=== PATIENT | female | born 1970 | race Caucasian/White ===

== ENCOUNTER 2017-03-21 19:06 | Inpatient (IN) | payer OTHER ==
[~2017-03-21] VITALS: Ht 154.9 cm; Wt 83.5 kg
[2017-03-21 21:21] LABS: CARBON DIOXIDE 25.9 mmol/L (21-32); CREATININE SERUM 1.7 mg/dL (0.6-1.0); POTASSIUM SERUM 3.2 mmol/L (3.5-5.1)
[2017-03-21 21:25] LABS: ALBUMIN 3.7 g/dL (3.4-5.0); BILIRUBIN TOTAL 1.29 mg/dL (0.20-1.00)
[2017-03-21 21:26] LABS: BASOPHIL % 0.4 % (0-2); PLATELET COUNT 354 x10^3mcL (130-400); RED CELL DISTRIBUTION WIDTH 13.6 % (11.5-14.5)
[2017-03-21 21:29] LABS: TOTAL PROTEIN, SERUM 10.1 g/dL (6.4-8.2)
--- NOTE | 2017-03-21 21:30 | NUR ---
PATIENT REPORTS TO ED WITH COMPLAINT RT LOWER ABDOMINAL/FLANK PAIN. PATIENT WAS SEEN BY MD. BLOOD WAS DRAWN BY LAB. SALINE LOCK INSERTED . FLUID IS INFUSING.
[2017-03-21] MEDS ORDERED: DILANTIN100 MG PO (21:45)
[2017-03-21] MEDS ORDERED: PROGRAF1 MG PO ×2 (21:46→21:50)
[2017-03-21] MEDS ORDERED: AV-PHOS 250 NE250 MG PO (21:47)
[2017-03-21] MEDS ORDERED: CEL500 PO (21:47)
[2017-03-21] MEDS ORDERED: CLONIDINE HCL0.1 MG PO (21:48)
[2017-03-21 21:50] LABS: microscopic required? YES; urine erythrocyte 1+ (NEGATIVE)
[2017-03-21] MEDS ORDERED: BENADRYL ALLERG25 M1 PO (21:52)
[2017-03-21] MEDS ORDERED: LORAZEPAM1 MG PO (21:52)
[2017-03-21] MEDS ORDERED: APAP500 MG PO (21:54)
--- NOTE | 2017-03-21 22:35 | NUR ---
DR RIVAS GAVE ADMISSION ORDER FOR MED/SURG
--- NOTE | 2017-03-21 22:57 | NUR ---
PATIENT IS ADMITTED WITH PYELONEPHRITIS.REPORT WAS GIVE TO FRANCISCO. PATIENT HAD ACUTE EPOSIDE OF VOMITING. MEDICATED WITH ZOFRAN IVP AND TRANSPORTED TO ROOM 208A.
--- NOTE | 2017-03-21 23:00 | NUR ---
RECEIVED PT FROM ED VIA [facility], CAME IN DUE TO ABDOMINAL PAIN AND VOMITING. AAOX4. NO SOB NOTED. DENIES CHEST PAIN/PRESSURE. C/O 6/10 SHARP RIGHT SIDED ABDOMINAL PAIN. DENIES NAUSEA/VOMITING AT THIS TIME. C/O BROWNISH-YELLOW COLORED URINE. DENIES DYSURIA. IV SITE PATENT AND INTACT. SIDE RAILS UPX2. CALL LIGHT ON REACH. ENDORSED TO PRIMARY NURSE FRANCISCO FOR CONTINUITY OF CARE
--- NOTE | 2017-03-21 23:01 | NUR ---
PATIENT TRANSPORTED TO ROOM.
--- NOTE | 2017-03-21 23:05 | NUR ---
PT RECEIVED FROM RESOURCE NURSE. PT A/O X4. MED-SURG, NO TELE. PULSES PALPABLE, NO EDEMA PRESENT. LUNG SOUNDS CTA, ON RA, DENIES SOB. ABD SOFT AND NONDISTENDED, BOWEL SOUNDS ACTIVE. PT DENIES N/V AT THIS TIME, STATES "THEY GAVE ME MEDICINE DOWN IN ER." VOIDS ADEQUATELY, BROWNISH/YELLOWISH URINE. AMBULATORY. SKIN IS INTACT. ADMITS TO HEADACHE AND RIGHT ABD PAIN AT THIS TIME. PT STATES PAIN IS TOLERABLE AT THIS TIME. IVF INFUSING WELL TO RFA, NS @ 100 ML/HR. ORIENTED PT TO ROOM AND SURROUNDINGS. BED IN LOWEST SETTING, SIDE RAILS UP X2, CALL WITHIN REACH. WILL CONTINUE TO MONITOR.
[2017-03-21 23:13] VITALS: BP 118/84
[2017-03-21 23:16] VITALS: Ht 154.9 cm; Wt 83.5 kg
--- NOTE | 2017-03-22 01:21 | NUR ---
PT ASLEEP AT THIS TIME, BUT EASILY AROUSABLE. NO RESP DISTRESS NOTED, NO SIGNS OF PAIN OBSERVED. IVF INFUSING WELL. CALL LIGHT WITHIN REACH. WILL CONTINUE TO MONITOR.
--- NOTE | 2017-03-22 06:43 | NUR ---
PT ASLEEP AT THIS TIME. NO RESP DISTRESS NOTED, NO S/S OF PAIN OBSERVED. IVF INFUSING WELL. ALL NEEDS MET. CALL LIGHT WITHIN REACH. WILL ENDORSE CARE TO AM NURSE.
[2017-03-22 06:47] LABS: BASOPHIL % 0.6 % (0-2); PLATELET COUNT 290 x10^3mcL (130-400); RED CELL DISTRIBUTION WIDTH 13.5 % (11.5-14.5)
[2017-03-22 06:56] LABS: CALCIUM 8.2 mg/dL (8.5-10.1); CARBON DIOXIDE 23.8 mmol/L (21-32); CREATININE SERUM 1.6 mg/dL (0.6-1.0)
[2017-03-22 07:55] VITALS: BP 111/80
[2017-03-22 09:35] VITALS: BP 89/59
--- NOTE | 2017-03-22 11:44 | NUR ---
CALLED AND GOT ANGEELS BRAVO'S TELEPHONE ORDER AND READ BACK: PHENYTOIN 300MG BID TO MATCH PT'S HOME DOSE. MADE PHARMANCY AWARE ABOUT THIS CHANGE.
[2017-03-22 14:48] VITALS: BP 89/59
== END 2017-03-22 16:20 | disposition home or self-care (01) | DRG 463 ==
LOC: ED 19:06 → MU 22:12
PROVIDERS: Emergency Medicine; Internal Medicine Pulmonary Disease; ADMIT Internal Medicine Pulmonary Disease
DX: N12 Tubulo-interstitial nephritis, not specified as acute or chronic (principal); Z94.0 Kidney transplant status; N18.3 Chronic kidney disease, stage 3 (moderate); I12.9 Hypertensive chronic kidney disease with stage 1 through stage 4 chronic kidney disease, or unspecified chronic kidney disease; Z88.8 Allergy status to other drugs, medicaments and biological substances
CPT/HCPCS: J0696; J1650; J2405; J7030; J7050; J7507; J7517

== ENCOUNTER 2017-04-29 12:00 | Emergency (ER) | payer OTHER ==
[~2017-04-29] VITALS: Ht 154.9 cm; Wt 84.9 kg
[~2017-04-29 12:00] MED LIST: APAP500 MG PO; AV-PHOS 250 NE250 MG PO; BENADRYL ALLERG25 M1 PO; CEL500 PO; CLONIDINE HCL0.1 MG PO; DILANTIN100 MG PO; LORAZEPAM1 MG PO; PROGRAF1 MG PO
[2017-04-29 12:18] VITALS: BP 110/70
== END 2017-04-29 14:20 | disposition home or self-care (01) ==
LOC: ED 12:00
DX: L60.0 Ingrowing nail (principal); I10 Essential (primary) hypertension

== ENCOUNTER 2017-06-12 20:46 | Emergency (ER) | payer OTHER ==
[~2017-06-12] VITALS: Ht 154.9 cm; Wt 84.4 kg
[2017-06-12 21:10] VITALS: Ht 154.9 cm; Wt 84.4 kg
[2017-06-13 01:51] VITALS: BP 127/61
== END 2017-06-13 01:51 | disposition home or self-care (01) ==
LOC: ED 20:46
DX: J20.9 Acute bronchitis, unspecified (principal); I10 Essential (primary) hypertension; Z88.5 Allergy status to narcotic agent; Z88.1 Allergy status to other antibiotic agents
CPT/HCPCS: 87804

== ENCOUNTER 2017-08-13 23:00 | Observation (INO) | payer OTHER ==
[~2017-08-13] VITALS: Ht 154.9 cm; Wt 84.8 kg
[2017-08-13 23:10] VITALS: Ht 154.9 cm; Wt 84.8 kg
[2017-08-14 00:41] LABS: BASOPHIL % 0.6 % (0-2); PLATELET COUNT 277 x10^3mcL (130-400); RED CELL DISTRIBUTION WIDTH 14.6 % (11.5-14.5)
[2017-08-14 00:50] LABS: CALCIUM 7.8 mg/dL (8.5-10.1); CARBON DIOXIDE 24.3 mmol/L (21-32); CREATININE SERUM 2.3 mg/dL (0.6-1.0); POTASSIUM SERUM 4.5 mmol/L (3.5-5.1)
[2017-08-14 00:57] LABS: BILIRUBIN TOTAL 0.3 mg/dL (0.20-1.00); TOTAL PROTEIN, SERUM 8.1 g/dL (6.4-8.2)
[2017-08-14 01:02] LABS: ALBUMIN 3.1 g/dL (3.4-5.0)
[2017-08-14 02:27] VITALS: BP 115/78
[2017-08-14 05:51] VITALS: BP 96/52
[2017-08-14 09:19] LABS: CK-MB < 0.5 ng/mL (0-3.6); CREATINE KINASE 29 U/L (26-192)
[2017-08-14 09:47] VITALS: BP 106/56
[2017-08-14 13:03] VITALS: BP 127/78
[2017-08-14 13:58] VITALS: BP 136/80
[2017-08-14 14:42] VITALS: BP 136/80
[2017-08-14 15:21] LABS: CK-MB < 0.5 ng/mL (0-3.6); CREATINE KINASE 36 U/L (26-192)
== END 2017-08-14 16:07 | disposition home or self-care (01) | DRG 203 ==
LOC: ED 23:00 → DU 08-14 01:19
PROVIDERS: Emergency Medicine; Internal Medicine
DX: R07.89 Other chest pain (principal); Z94.0 Kidney transplant status; I10 Essential (primary) hypertension; G40.909 Epilepsy, unspecified, not intractable, without status epilepticus; E66.9 Obesity, unspecified
CPT/HCPCS: 83880; G0378; J1650; J7507; J7517; Q0092

== ENCOUNTER 2017-12-27 15:00 | Emergency (ER) | payer OTHER ==
[~2017-12-27] VITALS: Ht 152.4 cm; Wt 79.4 kg
[2017-12-27 15:13] VITALS: Ht 152.4 cm; Wt 79.4 kg
[2017-12-27 18:17] VITALS: BP 129/77
== END 2017-12-27 18:19 | disposition home or self-care (01) ==
LOC: ED 15:00
DX: R05 Cough (principal); I10 Essential (primary) hypertension; F41.9 Anxiety disorder, unspecified; Z90.49 Acquired absence of other specified parts of digestive tract; Z90.710 Acquired absence of both cervix and uterus; Z94.0 Kidney transplant status

== ENCOUNTER 2018-02-12 15:55 | Emergency (ER) | payer OTHER ==
[2018-02-12 16:01] VITALS: Ht 152.4 cm
[2018-02-12 18:19] LABS: BASOPHIL % 0.9 % (0-2); PLATELET COUNT 246 x10^3mcL (130-400); RED CELL DISTRIBUTION WIDTH 14.4 % (11.5-14.5)
[2018-02-12 18:24] LABS: ALBUMIN 3.4 g/dL (3.4-5.0); BILIRUBIN TOTAL 0.66 mg/dL (0.20-1.00); CALCIUM 7.7 mg/dL (8.5-10.1); CARBON DIOXIDE 15.5 mmol/L (21-32); POTASSIUM SERUM 4.2 mmol/L (3.5-5.1)
[2018-02-12 18:28] LABS: CREATININE SERUM 4.2 mg/dL (0.6-1.0); TOTAL PROTEIN, SERUM 8.3 g/dL (6.4-8.2)
[2018-02-12 19:00] VITALS: BP 131/75
== END 2018-02-12 19:00 | disposition home or self-care (01) ==
LOC: ED 15:55
PROVIDERS: Emergency Medicine
DX: T42.6X5A Adverse effect of other antiepileptic and sedative-hypnotic drugs, initial encounter (principal); I12.9 Hypertensive chronic kidney disease with stage 1 through stage 4 chronic kidney disease, or unspecified chronic kidney disease; N18.9 Chronic kidney disease, unspecified; D64.9 Anemia, unspecified; N39.0 Urinary tract infection, site not specified; F41.9 Anxiety disorder, unspecified; Z94.0 Kidney transplant status; Z98.890 Other specified postprocedural states; Z94.9 Transplanted organ and tissue status, unspecified; Z90.49 Acquired absence of other specified parts of digestive tract; Z90.710 Acquired absence of both cervix and uterus; Y92.89 Other specified places as the place of occurrence of the external cause
CPT/HCPCS: 36415; J8597

== ENCOUNTER 2018-03-29 16:44 | Inpatient (IN) | payer OTHER ==
[~2018-03-29] VITALS: Ht 152.4 cm; Wt 73.1 kg
[2018-03-29 18:30] LABS: BASOPHIL % 0.1 % (0-2); PLATELET COUNT 262 x10^3mcL (130-400)
[2018-03-29 18:32] LABS: RED CELL DISTRIBUTION WIDTH 14.7 % (11.5-14.5)
[2018-03-29 18:37] LABS: ALBUMIN 3.6 g/dL (3.4-5.0); BILIRUBIN TOTAL 0.6 mg/dL (0.20-1.00); CALCIUM 6.3 mg/dL (8.5-10.1); CARBON DIOXIDE 20.1 mmol/L (21-32)
[2018-03-29 18:40] LABS: UA SPECIFIC GRAVITY 1.025 (1.005-1.035); microscopic required? YES; urine erythrocyte 1+ (NEGATIVE)
[2018-03-29 18:44] LABS: CREATININE SERUM 4.5 mg/dL (0.6-1.0); POTASSIUM SERUM 2.8 mmol/L (3.5-5.1); TOTAL PROTEIN, SERUM 8.7 g/dL (6.4-8.2)
[2018-03-29] MEDS ORDERED: ZONEGRAN100 MG PO (19:37)
[2018-03-29] MEDS ORDERED: PRO (19:37)
[2018-03-29] MEDS ORDERED: ZOF4 PO (19:38)
[2018-03-29] MEDS ORDERED: APAP500 MG PO (19:38)
[2018-03-29] MEDS ORDERED: CATAPRES0.1 MG PO (19:39)
[2018-03-29] MEDS ORDERED: CEL500 PO (19:39)
[2018-03-29] MEDS ORDERED: PHOSPHA 250 NEU1 TAB PO (19:40)
[2018-03-29] MEDS ORDERED: FERROUS SULFAT325 M2 PO (19:41)
[2018-03-29 20:27] VITALS: BP 92/57
[2018-03-29 20:30] VITALS: Ht 152.4 cm; Wt 73.1 kg
[2018-03-30 06:04] VITALS: BP 102/58
[2018-03-30 06:30] LABS: BASOPHIL % 0.2 % (0-2); PLATELET COUNT 222 x10^3mcL (130-400); RED CELL DISTRIBUTION WIDTH 13.9 % (11.5-14.5)
[2018-03-30 06:52] LABS: PHOSPHOROUS 5.5 mg/dL (2.5-4.9)
[2018-03-30 06:58] LABS: CARBON DIOXIDE 16.1 mmol/L (21-32)
[2018-03-30 07:10] LABS: CREATININE SERUM 4.7 mg/dL (0.6-1.0)
[2018-03-30 09:19] VITALS: BP 106/60
[2018-03-30 17:33] VITALS: BP 115/61
[2018-03-30 22:25] VITALS: BP 127/77
[2018-03-31 05:17] VITALS: BP 144/72
[2018-03-31 06:13] LABS: BASOPHIL % 0.2 % (0-2); PLATELET COUNT 245 x10^3mcL (130-400); RED CELL DISTRIBUTION WIDTH 14.3 % (11.5-14.5)
[2018-03-31 06:55] LABS: CALCIUM 6.8 mg/dL (8.5-10.1); CARBON DIOXIDE 16.4 mmol/L (21-32); MAGNESIUM 1.9 mg/dL (1.8-2.4); PHOSPHOROUS 4.9 mg/dL (2.5-4.9); POTASSIUM SERUM 3.3 mmol/L (3.5-5.1)
[2018-03-31 07:08] LABS: CREATININE SERUM 4.8 mg/dL (0.6-1.0)
[2018-03-31 09:25] VITALS: BP 128/62
[2018-03-31 17:17] VITALS: BP 129/79
[2018-03-31 19:10] VITALS: BP 123/67
[2018-04-01 05:38] VITALS: BP 132/87
[2018-04-01 06:29] LABS: PLATELET COUNT 298 x10^3mcL (130-400); RED CELL DISTRIBUTION WIDTH 14.4 % (11.5-14.5)
[2018-04-01 06:45] LABS: CALCIUM 7.8 mg/dL (8.5-10.1); MAGNESIUM 1.9 mg/dL (1.8-2.4); POTASSIUM SERUM 3.5 mmol/L (3.5-5.1)
[2018-04-01 06:48] LABS: CREATININE SERUM 4.2 mg/dL (0.6-1.0)
[2018-04-01 09:20] VITALS: BP 127/60; BP 131/71
[2018-04-01 10:38] LABS: ATYPICAL LYMPH 1 %; BAND NEUTROPHIL 1 % (0-10); BASOPHIL 0 % (0-2); MONOCYTE 1 % (0-7); SEGMENTED NEUTROPHILS 97 % (37-75)
[2018-04-01 10:39] LABS: rbc morphology (normal/abnorm) ABNORMAL (NORMAL)
[2018-04-01 10:40] LABS: PLATELET MORPHOLOGY PLATELETS NORMAL
[2018-04-01] MEDS ORDERED: CIPRO250 MG PO (15:15)
[2018-04-01 16:39] VITALS: BP 131/71
[2018-04-01 17:01] VITALS: BP 156/98
== END 2018-04-01 18:45 | disposition home or self-care (01) | DRG 720 ==
LOC: ED 16:44 → MU 19:23
PROVIDERS: Emergency Medicine; Internal Medicine Nephrology; Internal Medicine Pulmonary Disease
DX: A41.9 Sepsis, unspecified organism (principal); T86.11 Kidney transplant rejection; N17.9 Acute kidney failure, unspecified; I12.0 Hypertensive chronic kidney disease with stage 5 chronic kidney disease or end stage renal disease; E83.42 Hypomagnesemia; E83.39 Other disorders of phosphorus metabolism; N10 Acute pyelonephritis; Z94.0 Kidney transplant status; G40.909 Epilepsy, unspecified, not intractable, without status epilepticus; D63.1 Anemia in chronic kidney disease; E87.6 Hypokalemia; E86.0 Dehydration; F41.9 Anxiety disorder, unspecified; E66.9 Obesity, unspecified; Z79.899 Other long term (current) drug therapy; Z68.32 Body mass index [BMI] 32.0-32.9, adult; Y83.8 Other surgical procedures as the cause of abnormal reaction of the patient, or of later complication, without mention of misadventure at the time of the procedure; Z88.8 Allergy status to other drugs, medicaments and biological substances; N18.6 End stage renal disease; D64.9 Anemia, unspecified; E83.52 Hypercalcemia; Z90.49 Acquired absence of other specified parts of digestive tract; Z90.710 Acquired absence of both cervix and uterus
CPT/HCPCS: J0610; J0696; J1650; J1720; J2060; J2270; J2405; J2765; J3475; J3480; J7030; J7507; J7517

== ENCOUNTER 2018-08-16 21:52 | Emergency (ER) | payer OTHER ==
[~2018-08-16 21:52] MED LIST changes: +CATAPRES0.1 MG PO; +CIPRO250 MG PO; +FERROUS SULFAT325 M2 PO; +PHOSPHA 250 NEU1 TAB PO; +PRO; +ZOF4 PO; +ZONEGRAN100 MG PO
[2018-08-16 22:14] VITALS: Ht 154.9 cm
[2018-08-16 23:04] LABS: BASOPHIL % 0.4 % (0-2)
[2018-08-16 23:13] LABS: PLATELET COUNT 118 x10^3mcL (130-400); RED CELL DISTRIBUTION WIDTH 16.2 % (11.5-14.5)
[2018-08-16 23:17] LABS: BILIRUBIN TOTAL 0.61 mg/dL (0.20-1.00); CARBON DIOXIDE 27.3 mmol/L (21-32); POTASSIUM SERUM 3.6 mmol/L (3.5-5.1)
[2018-08-16 23:28] LABS: CALCIUM 8.4 mg/dL (8.5-10.1)
[2018-08-16 23:31] LABS: TOTAL PROTEIN, SERUM 8.3 g/dL (6.4-8.2)
[2018-08-16 23:33] LABS: CREATININE SERUM 5.4 mg/dL (0.6-1.0)
[2018-08-17 00:12] VITALS: BP 125/85
== END 2018-08-17 00:12 | disposition home or self-care (01) ==
LOC: ED 21:52
PROVIDERS: Emergency Medicine
DX: K59.00 Constipation, unspecified (principal); R10.32 Left lower quadrant pain; E11.22 Type 2 diabetes mellitus with diabetic chronic kidney disease; I12.0 Hypertensive chronic kidney disease with stage 5 chronic kidney disease or end stage renal disease; N18.6 End stage renal disease; Z99.2 Dependence on renal dialysis
CPT/HCPCS: 36415; J1885

== ENCOUNTER 2019-02-23 00:04 | Emergency (ER) | payer OTHER ==
[~2019-02-23] VITALS: Ht 154.9 cm; Wt 80.7 kg
[2019-02-23 00:13] VITALS: Ht 154.9 cm; Wt 80.7 kg
[2019-02-23 01:22] VITALS: BP 111/78
== END 2019-02-23 01:22 | disposition home or self-care (01) ==
LOC: ED 00:04
DX: S70.11XA Contusion of right thigh, initial encounter (principal); F41.9 Anxiety disorder, unspecified; I12.0 Hypertensive chronic kidney disease with stage 5 chronic kidney disease or end stage renal disease; N18.6 End stage renal disease; Z90.49 Acquired absence of other specified parts of digestive tract; Z88.5 Allergy status to narcotic agent; Z88.1 Allergy status to other antibiotic agents; Z91.040 Latex allergy status; Z98.890 Other specified postprocedural states; Z90.710 Acquired absence of both cervix and uterus; Z99.2 Dependence on renal dialysis; Z94.0 Kidney transplant status; V89.0XXA Person injured in unspecified motor-vehicle accident, nontraffic, initial encounter; Y93.I9 Activity, other involving external motion; Y92.413 State road as the place of occurrence of the external cause; Y99.8 Other external cause status

== ENCOUNTER 2019-03-27 18:46 | Emergency (ER) | payer OTHER ==
[~2019-03-27] VITALS: Ht 152.4 cm; Wt 84.4 kg
[2019-03-27 19:04] VITALS: BP 123/74; Ht 152.4 cm; Wt 84.4 kg
== END 2019-03-27 22:48 | disposition home or self-care (01) ==
LOC: ED 18:46
DX: J06.9 Acute upper respiratory infection, unspecified (principal); R51 Headache
CPT/HCPCS: 87804

== ENCOUNTER 2019-04-24 00:48 | Emergency (ER) | payer OTHER ==
[~2019-04-24] VITALS: Ht 152.4 cm; Wt 81.2 kg
[2019-04-24 00:55] VITALS: Ht 152.4 cm; Wt 81.2 kg
[2019-04-24 01:45] LABS: ALBUMIN 3.8 g/dL (3.4-5.0); BILIRUBIN TOTAL 0.26 mg/dL (0.20-1.00); CALCIUM 8.5 mg/dL (8.5-10.1); CARBON DIOXIDE 26.5 mmol/L (21-32); POTASSIUM SERUM 3.9 mmol/L (3.5-5.1); TOTAL PROTEIN, SERUM 8.2 g/dL (6.4-8.2)
[2019-04-24 02:10] LABS: BASOPHIL % 0.5 % (0-2); PLATELET COUNT 180 x10^3mcL (130-400); RED CELL DISTRIBUTION WIDTH 14.2 % (11.5-14.5)
[2019-04-24 02:33] VITALS: BP 121/79
== END 2019-04-24 02:33 | disposition home or self-care (01) ==
LOC: ED 00:48
PROVIDERS: Emergency Medicine
DX: R58 Hemorrhage, not elsewhere classified (principal); I12.0 Hypertensive chronic kidney disease with stage 5 chronic kidney disease or end stage renal disease; N18.6 End stage renal disease; N17.9 Acute kidney failure, unspecified; F41.9 Anxiety disorder, unspecified; Z94.0 Kidney transplant status; Z98.890 Other specified postprocedural states; Z90.49 Acquired absence of other specified parts of digestive tract; Z90.710 Acquired absence of both cervix and uterus; Z88.5 Allergy status to narcotic agent; Z88.8 Allergy status to other drugs, medicaments and biological substances; Z91.040 Latex allergy status; Z49.01 Encounter for fitting and adjustment of extracorporeal dialysis catheter
CPT/HCPCS: 36415

== ENCOUNTER 2019-07-02 15:52 | Emergency (ER) | payer OTHER ==
[~2019-07-02] VITALS: Ht 157.5 cm; Wt 85.3 kg
[2019-07-02 16:04] VITALS: Ht 157.5 cm; Wt 85.3 kg
[2019-07-02 20:08] VITALS: BP 98/66
== END 2019-07-02 20:08 | disposition home or self-care (01) ==
LOC: ED 15:52
DX: J02.9 Acute pharyngitis, unspecified (principal)
CPT/HCPCS: J1100

== ENCOUNTER 2019-07-29 01:00 | Emergency (ER) | payer OTHER ==
[~2019-07-29] VITALS: Ht 152.4 cm; Wt 89.0 kg
[2019-07-29 01:07] VITALS: Ht 152.4 cm; Wt 89.0 kg
[2019-07-29 02:18] VITALS: BP 90/56
== END 2019-07-29 02:18 | disposition home or self-care (01) ==
LOC: ED 01:00
DX: K62.89 Other specified diseases of anus and rectum (principal); I10 Essential (primary) hypertension; I12.9 Hypertensive chronic kidney disease with stage 1 through stage 4 chronic kidney disease, or unspecified chronic kidney disease; N18.9 Chronic kidney disease, unspecified; Z88.6 Allergy status to analgesic agent; Z98.890 Other specified postprocedural states; Z91.040 Latex allergy status; Z88.8 Allergy status to other drugs, medicaments and biological substances; Z88.1 Allergy status to other antibiotic agents

== ENCOUNTER 2020-02-27 00:14 | Emergency (ER) | payer OTHER ==
[~2020-02-27] VITALS: Ht 154.9 cm; Wt 86.2 kg
[2020-02-27 01:04] VITALS: Ht 154.9 cm; Wt 86.2 kg
[2020-02-27 03:54] VITALS: BP 122/77
== END 2020-02-27 03:54 | disposition home or self-care (01) ==
LOC: ED 00:14
DX: K64.8 Other hemorrhoids (principal); E66.9 Obesity, unspecified; I10 Essential (primary) hypertension; N18.9 Chronic kidney disease, unspecified; Z99.2 Dependence on renal dialysis; Z90.49 Acquired absence of other specified parts of digestive tract; Z90.710 Acquired absence of both cervix and uterus; Z98.890 Other specified postprocedural states; Z88.1 Allergy status to other antibiotic agents; Z88.8 Allergy status to other drugs, medicaments and biological substances; Z91.040 Latex allergy status